=== PATIENT | female | born 1990 | race Caucasian/White ===

== ENCOUNTER 2021-01-24 10:44 | Emergency (ER) | payer OTHER ==
[~2021-01-24] VITALS: Ht 160 cm; Wt 59.0 kg
--- NOTE | 2021-01-24 11:18 | NUR ---
First contact with pt. Pt reports sharp pain in stomach with N/V starting last night. Pt currently 17 weeks , denies and cramping or VB. PT placed in gown, positioned for comfort in bed with warm blanket. Continuous oxygen and BP Monitors applied, all safety measures observed. Jenaro CAMARENA at bedside to evaluate pt.
[2021-01-24] MEDS ORDERED: MORPHINE SULFATE 4 MG/ML, 1ML ONE (11:25)
[2021-01-24] MEDS ORDERED: ONDANSETRON 2MG/ML, 2ML ONE (11:25)
[2021-01-24] MEDS ORDERED: SODIUM CHLORIDE 0.9% 1,000ML IVBOLUS ONE (11:30)
[2021-01-24] MEDS ORDERED: SODIUM CHLORIDE FLUSH 10ML SYR IVF ONE (11:30)
[2021-01-24] MEDS ORDERED: MORPHINE SULFATE 4 MG/ML, 1ML IVPush PRN (11:30)
[2021-01-24] MEDS ORDERED: ONDANSETRON 2MG/ML, 2ML IVPush ONE (11:30)
--- NOTE | 2021-01-24 11:34 | NUR ---
Pt medicated per MAR, denies other needs.
[2021-01-24 11:47] LABS: BASOPHILS % (AUTO) 0 % (0-1); EOSINOPHILS % (AUTO) 0 % (1-7); LYMPHOCYTES % (AUTO) 5 % (22-44); MEAN CORPUSCULAR HEMOGLOBIN 32.5 pg (27.0-34.8); MEAN CORPUSCULAR HGB CONC 34.7 g/dL (32.4-35.8); MEAN PLATELET VOLUME 8.8 fL (7.4-10.4); MONOCYTES % (AUTO) 3 % (2-9); NEUTROPHILS % (AUTO) 92 % (42-75); PLATELET COUNT 280 x10^3/uL (130-400); RED BLOOD COUNT 3.74 x10^6/uL (3.82-5.3); RED CELL DISTRIBUTION WIDTH 13.8 % (9.6-15.2)
[2021-01-24 11:53] LABS: MICROSCOPIC INDICATED
[2021-01-24 11:56] LABS: ALANINE AMINOTRANSFERASE 23 U/L (12-78); ALBUMIN 3.3 g/dL (3.4-5.0); ANION GAP 11 mmol/L (5-15); CALCIUM 8.7 mg/dL (8.5-10.1); CHLORIDE 105 mmol/L (98-107); CREATININE 0.58 mg/dL (0.55-1.02)
[2021-01-24 11:58] LABS: ALKALINE PHOSPHATASE 58 U/L (45-117); BILIRUBIN,TOTAL 1.4 mg/dL (0.2-1.0); TOTAL PROTEIN 7.4 g/dL (6.4-8.2)
--- NOTE | 2021-01-24 12:09 | NUR ---
Pt reports pain resolved after medications. Pt denies other needs. US in progress.
[2021-01-24 13:35] VITALS: BP 113/74
== END 2021-01-24 13:38 | disposition home or self-care (01) ==
LOC: ED 11:15
DX: O99.612 Diseases of the digestive system complicating pregnancy, second trimester (principal); K80.70 Calculus of gallbladder and bile duct without cholecystitis without obstruction; R94.31 Abnormal electrocardiogram [ECG] [EKG]; N30.00 Acute cystitis without hematuria; D72.829 Elevated white blood cell count, unspecified; Z3A.17 17 weeks gestation of pregnancy
CPT/HCPCS: 36415; 76700; 80053; 81001; 83690; 85025; 87086; 93005; 96361; 96374; 96375; 99285; J2270; J2405; J7030; 99284